=== PATIENT | male | born 1950 | race Caucasian/White ===

== ENCOUNTER → 2017-06-03 | Outpatient (CLI) | payer MEDICARE ==
[~2017-06-03] MED LIST: ACET-1757 PO; ASPI-496 PO; ATOR20TA PO; CARV6.2512 PO; CLOP75TA52 PO; DIPH25CA61 PO; HYDR-3240 PO; IBUP-1222 PO; ONDA4TAB7 PO; REGADENOSON 0.4 MG/5 ML SYRINGE ONE; VALS160T3 PO; VALS320T2 PO
== END ==
LOC: CFH 11:28
PROVIDERS: ATTEND Internal Medicine Cardiovascular Disease
DX: I25.9 Chronic ischemic heart disease, unspecified (principal); I21.19 ST elevation (STEMI) myocardial infarction involving other coronary artery of inferior wall; I21.29 ST elevation (STEMI) myocardial infarction involving other sites; I10 Essential (primary) hypertension
CPT/HCPCS: 78452; 93017; A9502; J2785

== ENCOUNTER → 2020-05-10 | Outpatient (CLI) | payer MEDICARE ==
[~2020-05-10] MED LIST changes: -ACET-1757 PO; +ACET-2065 PO; +HYDR-1067 PO; -HYDR-3240 PO; -REGADENOSON 0.4 MG/5 ML SYRINGE ONE
== END | disposition home or self-care (01) ==
LOC: CVU 12:25
PROVIDERS: ATTEND Internal Medicine Cardiovascular Disease
DX: I08.0 Rheumatic disorders of both mitral and aortic valves (principal); I65.23 Occlusion and stenosis of bilateral carotid arteries; I11.9 Hypertensive heart disease without heart failure; I25.10 Atherosclerotic heart disease of native coronary artery without angina pectoris
CPT/HCPCS: 93306; 93880